=== PATIENT | female | born 1985 | race African-American/Black ===

== ENCOUNTER 2016-10-04 13:17 | Emergency (ER) | payer BC, MEDICAID, OTHER ==
[~2016-10-04] VITALS: Ht 162.6 cm; Wt 77.0 kg
[~2016-10-04 13:17] MED LIST: LOMO PO; ONDA1TAB16 PO; Z.0.NO CURRENT MEDS
== END 2016-10-04 14:01 | disposition left against medical advice (07) ==
LOC: NED 13:17
DX: R23.9 Unspecified skin changes (principal); Z53.21 Procedure and treatment not carried out due to patient leaving prior to being seen by health care provider
CPT/HCPCS: 99281